=== PATIENT | female | born 1995 | race African-American/Black ===

== ENCOUNTER 2023-01-23 14:50 | Emergency (ER) | payer MEDICAID ==
[~2023-01-23] VITALS: Ht 172.7 cm; Wt 77.0 kg
[2023-01-23 14:55] VITALS: BP 106/64; PULSE 114; RESP 18; TEMP 98.3; O2SAT 95
[2023-01-23 15:44] LABS: HEMATOCRIT. 37.8 % (36.0-48.0); HEMOGLOBIN. 12.7 g/dL (12.0-16.0); MEAN CORPUSCULAR HEMOGLOBIN 34.3 pg (28.0-32.0); MEAN CORPUSCULAR HGB CONC 33.7 g/dL (31.0-37.0); MEAN CORPUSCULAR VOLUME 101.7 fL (81.0-99.0); MEAN PLATELET VOLUME 7.4 fl (7.4-10.4); PLATELET 140 x1000/uL (130-400); RED BLOOD CELL COUNT 3.71 mill/uL (4.2-5.4)
[2023-01-23 15:46] LABS: DIFFERENTIAL COMMENT 1
[2023-01-23 15:55] LABS: INR 1.2
[2023-01-23 16:00] LABS: CHLORIDE 99 mEq/L (98-107); INDEX HEMOLYSI 1 (1-3); INDEX ICTERIC 2 (1-4); INDEX LIPEMIC 1 (1-3); POTASSIUM 3.5 mEq/L (3.5-5.1); SODIUM 130 mEq/L (136-145)
[2023-01-23 16:10] LABS: ALANINE AMINOTRANSFERASE 103 IU/L (13-61); ALBUMIN 3.9 g/dL (3.4-5.0); ASPARTATE AMINOTRANSFERASE 35 IU/L (15-37); BILIRUBIN TOTAL 3.1 mg/dL (0.1-1.0); CALCIUM 9.1 mg/dL (8.5-10.1); CARBON DIOXIDE 23 mEq/L (21-32); CREATININE 0.8 mg/dL (0.6-1.3); GLUCOSE 89 mg/dL (70-105); PROTEIN TOTAL 7.8 g/dL (6.0-8.3); UREA NITROGEN BLOOD 10 mg/dL (7-21)
[2023-01-23 16:24] LABS: HCG SCREEN NEGATIVE
[2023-01-23 19:12] LABS: PLATELET ESTIMATE NORMAL
== END 2023-01-23 22:00 | disposition left against medical advice (07) ==
LOC: ER 14:50
DX: R19.7 Diarrhea, unspecified (principal); R10.84 Generalized abdominal pain
CPT/HCPCS: 36415; 80053; 84703; 85025; 99283